=== PATIENT | female | born 1965 | race African-American/Black ===

== ENCOUNTER 2019-02-19 10:39 | Emergency (ER) | payer MEDICARE, MEDICAID ==
[2019-02-19 11:08] LABS: #Basophils 0.1 thou/uL (0.0-0.2); #Eosinphils 0.3 thou/uL (0.0-0.7); #Lymphocytes 3.5 thou/uL (1.20-3.40); #Monocytes 0.6 thou/uL (0.11-0.59); #Neutrophils 2.9 thou/uL (1.40-6.50); %Basophils 1.8 % (0.0-1.0); %Eosinophils 3.4 % (0.0-10.0); %Lymphocytes 47.2 % (21.0-51.0); %Monocytes 8.4 % (0.0-10.0); %Neutrophils 39.2 % (42.0-75.0); Hemoglobin 12.3 g/dL (12.0-16.0); Mean Corpuscular Hemoglobin 28.9 pg (27.0-31.0); Mean Corpuscular Volume 92.9 fL (78.0-98.0); Mean Platelet Volume 7.4 fL (7.4-10.4); Platelet Count 291 thou/uL (130-400); RBC Distribution Width 12.5 % (11.5-14.5); Red Blood Cell (RBC) Count 4.27 mill/uL (4.20-5.40); White Blood Cell (WBC) Count 7.4 thou/uL (4.8-10.8)
[2019-02-19 11:23] LABS: Bilirubin Negative (Negative); Blood, Urine Negative (Negative); Clarity CLEAR (Clear); Glucose, Urine (Dipstick) Negative (Negative); Leukocyte Negative (Negative); Nitrite Negative (Negative); Protein, Urine (Dipstick) Negative (Neg-Trace); Specific Gravity, Urine 1.004 (1.002-1.036); Urobilinogen 0.2 mg/dL (0.2-1.0)
[2019-02-19 11:29] LABS: ALT (SGPT) 13 U/L (8-55); AST (SGOT) 15 U/L (5-34); Alkaline Phosphatase 76 U/L (40-150); Anion Gap 11 mmol/L (10-20); BUN (Urea Nitrogen) 9 mg/dL (9.8-20.1); Bilirubin, Total 0.9 mg/dL (0.2-1.2); Calc. Creatinine Clearance 0 mL/min (70-130); Calcium 9.9 mg/dL (7.8-10.44); Carbon Dioxide 29 mmol/L (22-29); Chloride 105 mmol/L (98-107); Estimated GFR-MDRD 81; Glucose 80 mg/dL (70-105); Lipase 15 U/L (8-78); Potassium 4.5 mmol/L (3.5-5.1); Sodium 140 mmol/L (136-145)
[2019-02-19] MEDS ORDERED: Ondansetron PF 4 MG/2 ML Vial ONE (11:36)
[2019-02-19] MEDS ORDERED: Lidocaine Viscous Sol 2% 15 ml UD Cup ONE (11:37)
[2019-02-19] MEDS ORDERED: Mag-Al 1200 mg/1200 mg/30 ML UDCUP ONE (11:37)
[2019-02-19] MEDS ORDERED: Morphine 4 MG/ML VIAL ONE (11:42)
[2019-02-19] MEDS ORDERED: Lorazepam 2 MG/ML VIAL ONE (12:17)
--- NOTE | 2019-02-19 13:34 | RAD ---
ONE VIEW CHEST: HISTORY: Pain. Nausea. Vomiting. COMPARISON: 06/07/2011. FINDINGS: Normal cardiac silhouette. Lungs and pleural spaces are clear. No pneumothorax or osseous abnormali ties. IMPRESSION: No acute cardiopulmonary process. POS: SEAN
[2019-02-19] MEDS ORDERED: ISOVUE-370 76%-LOCM 1 ML ONE (14:12)
--- NOTE | 2019-02-19 14:41 | CT ---
CT ABDOMEN AND PELVIS WITH IV CONTRAST: DATE: 02/19/2019. PROVIDED CLINICAL HISTORY: Abdominal pain, constipation. FINDINGS: The visualized lung bases are free of significant [id number]. The liver, spleen, pancreas, kidneys, and adrenal glands demonstrate an unremarkable CT appearance. There is no bowel dilatation, inflammatory fat stranding, or free air apparent. There is a small bradley unt of free pelvic fluid noted. The uterus is not visualized and presumed surgically absent. There is conspicuous colonic fecal retention suggesting constipation. The osseous structures demonstrate n o concerning lytic or blastic lesions. IMPRESSION: 1. A small amount of free pelvic fluid, the etiology and significance of which are uncertain. 2. Conspicuous colonic fecal retention, suggesting constipation. POS: THEA
== END 2019-02-19 13:47 | disposition home or self-care (01) ==
LOC: ERS 10:39
DX: K52.9 Noninfective gastroenteritis and colitis, unspecified (principal); K59.00 Constipation, unspecified; K21.9 Gastro-esophageal reflux disease without esophagitis; E78.5 Hyperlipidemia, unspecified; I10 Essential (primary) hypertension; F17.210 Nicotine dependence, cigarettes, uncomplicated
CPT/HCPCS: 36415; 71045; 74177; 80053; 81003; 82550; 83690; 83880; 84484; 85025; 93005; 96361; 96374; 96375; J2060; J2270; J2405; Q9966